=== PATIENT | male | born 1970 | race Caucasian/White ===

== ENCOUNTER 2017-11-04 20:46 | Emergency (ER) | payer OTHER ==
--- NOTE | 2017-11-04 21:09 | CPEKG ---
Heart Rate: 61 RR Interval: 984 P-R Interval: 140 QRSD Interval: 94 QT Interval: 392 QTC Interval: 395 P [place]: 57 QRS [place]: 74 T Wave [place]: 60 EKG Severity - NORMAL ECG - EKG Impression: SINUS RHYTHM Electronically Signed By: Omer Logan 04-Nov-2017 21:51:37
--- NOTE | 2017-11-04 21:46 | EDPHY ---
H & P Stated Complaint: tightness in chest started tu Time Seen by Provider: 11/04/17 21:01 - Personal History Current Tetanus/Diphtheria Vaccine: Unsure Current Tetanus Diphtheria and Acellular Pertussis (TDAP): Unsure - Medical/Surgical History Hx Asthma: No Hx Chronic Respiratory Disease: No Hx Diabetes: No Hx Cardiac Disease: No Hx Renal Disease: No Hx Cirrhosis: No Hx Alcoholism: No Hx HIV/AIDS: No Hx Splenectomy or Spleen Trauma: No Other PMH: tonsils. wisdom teeth Constitutional: Initial Vital Signs Temperature (C) 36.4 C 11/04/17 20:52 Heart Rate 71 11/04/17 20:52 Respiratory Rate 18 11/04/17 20:52 Blood Pressure 123/77 H 11/04/17 20:52 O2 Sat (%) 98 11/04/17 20:52 O2 Delivery Mode Room Air Allergies/Adverse Reactions: No Known Allergies Allergy (Unverified 11/04/17 20:51) Home Medications: Medication Instructions Recorded Testosterone IM [Testosterone 100 mg IM 11/04/17 100mg/ml IM inj (*)] Medical Decision Making ED Course/Re-evaluation: I have discussed and evaluated this patient with Nancy. This patient has atypical type chest pain and normal EKG. We will do laboratory studies. He is very active and I doubt coronary artery disease as a cause of his presentation this evening. We will rule out pericarditis since he has symptoms that in to change with position. He does not have any EKG indicative of pericarditis and he has not had a prodrome of illness. Departure - Departure Referrals: Juli Owens MD [Primary Care Provider] - As per Instructions
--- NOTE | 2017-11-04 22:19 | EDPHY ---
H & P Time Seen by Provider: 11/04/17 21:01 HPI/ROS: CHIEF COMPLAINT: Chest tightness HISTORY OF PRESENT ILLNESS: 46-year-old male presents to the emergency department with left-sided chest pain and tightness. Symptoms began yesterday. He notices the pain especially when he lies flat or if rotates to his left and right side. He denies abdominal pain. No nausea or vomiting. He does not feel short of breath. He denies pleuritic chest pain, however when he takes a big deep breath it feels more "tight "in this area in the left side of his chest. No neck or back pain. No headache. REVIEW OF SYSTEMS: Constitutional: No fever, no chills. Eyes: No double or blurry vision. ENT: No sore throat. Respiratory: No cough, no shortness of breath. Cardiac: chest pain. Gastrointestinal: No abdominal pain, vomiting or diarrhea. Genitourinary: No dysuria. Musculoskeletal: No neck or back pain. Skin: No rashes. Neurological: No headache. (Ariel,Nancy M) Past Medical/Surgical History: Negative (Ariel,Nancy M) Social History: and lives in [place] (Ariel,Nancy M) Physical Exam: General Appearance: Alert, no distress. Vital signs are stable. Eyes: Pupils equal and round. Extraocular motions are all intact. ENT: Mouth: Mucous membranes moist. Respiratory: No wheezing, rhonchi, or rales, lungs are clear to auscultation. Patient has reproducible pain with palpation to the left anterior aspect of his chest in the midclavicular line just below the left breast overlying the 6th or 7th rib area. No palpable crepitus or other bony abnormality. Cardiovascular: Regular rate and rhythm. No murmur, rubs, or gallop. Gastrointestinal: Abdomen is soft and nontender, no masses, no rebound or guarding, bowel sounds normal. Neurological: Alert and oriented x 3, cranial nerves II through XII grossly intact Skin: Warm and dry, no rashes. Musculoskeletal: Nontender to palpate along the cervical, thoracic or lumbar spine. Neck is supple. Extremities: Full range of motion and no peripheral edema. Psychiatric: Patient is oriented X 3, there is no agitation. (Ariel,Nacny M) Constitutional: Initial Vital Signs Temperature (C) 36.4 C 11/04/17 20:52 Heart Rate 71 11/04/17 20:52 Respiratory Rate 18 11/04/17 20:52 Blood Pressure 123/77 H 11/04/17 20:52 O2 Sat (%) 98 11/04/17 20:52 O2 Delivery Mode Room Air Allergies/Adverse Reactions: No Known Allergies Allergy (Unverified 11/04/17 20:51) Home Medications: Medication Instructions Recorded Testosterone IM [Testosterone 100 mg IM 11/04/17 100mg/ml IM inj (*)] Medical Decision Making - Diagnostics Imaging: I viewed and interpreted images myself - Diagnostics EKG Interpretation: EKG reveals normal sinus rhythm with no acute ST T wave abnormalities. This is reviewed by Dr. Omer Logan. See interpretation in trace master. (Nancy George) Imaging Results: Chest x-ray reveals no acute pulmonary disease. This is reviewed by myself the PAC system as well as Dr. Omer Logan. (Nancy George) ED Course/Re-evaluation: The case was discussed with Dr. Omer Logan, secondary supervising physician, who did not directly evaluate the patient but agrees with treatment and plan. EKG is unremarkable. Chest x-ray is unremarkable. D-dimer was negative. Troponin was negative. Patient was reassured. He was given Cardiology referral. He did have reproducible pain with palpation to the left anterior aspect of the chest wall. No palpable crepitus or other bony abnormality. Patient is comfortable being discharged home. (Nancy George) Differential Diagnosis: Chest pain including but not limited to myocardial ischemia, pulmonary embolus, chest wall pain, pleural inflammation and pulmonary infectious causes. (Nancy George) Other Provider: 2:00 a.m.- I received a call from the radiologist Dr. Hernandez who is reading films right now. He has identified a small left-sided pneumothorax measuring about 15 mm at the apex. This seems to be spontaneous is there is no reported history of trauma. I consulted with Dr. Johns, extermination supervisor for trauma surgery. We discussed the case. Given the small size of the pneumothorax, no chest tube is warranted. If the patient is worse in any way he should return to the emergency department. Otherwise if his symptoms status same or improve, he should have follow-up with Dr. Ferreira or Dr. Benito for repeat chest x-ray and follow- up. If this is a spontaneous pneumothorax, he is at risk for recurrence and patient's should certainly of follow-up. We have tried to reach the patient and have left a message. (Alla Ingram) - Data Points Laboratory Results: 11/04/17 11/04/17 21:58 21:58 D-Dimer < 0.27 ug/mLFEU ug/mLFEU (0.00-0.50) Troponin I < 0.012 ng/mL ng/mL (0.000-0.034) Departure - Departure Disposition: Home, Routine, Self-Care Clinical Impression: Chest pain Condition: Good Instructions: Chest Pain (ED) Additional Instructions: Ibuprofen 600mg every 8 hours for pain as directed. You should follow up with [facility]. Return if you develop recurring chest pain or if you feel shortness of breath or if you feel worse in any way. Referrals: Shelia Patel MD [Medical Doctor] - As per Instructions ([facility] on-call)
[2017-11-04 22:46] VITALS: BP 140/68; PULSE 59; RESP 16
[2017-11-04 22:55] VITALS: TEMP 97.9; O2SAT 97
== END 2017-11-04 22:54 | disposition home or self-care (01) ==
DX: R07.9 Chest pain, unspecified (principal)

== ENCOUNTER → 2017-11-10 | Outpatient (CLI) | payer OTHER | LOC: FIMAGING 14:42 | PROVIDERS: ATTEND Surgery | DX: J93.9 Pneumothorax, unspecified (principal) ==